=== PATIENT | female | born 1950 | race Caucasian/White ===

== ENCOUNTER 2017-01-07 10:17 | Emergency (ER) | payer MEDICARE, OTHER ==
[~2017-01-07 10:17] MED LIST: AMLODIPINE BESYL5 MG PO; ASPIRIN81 M1 PO; CALCIUM + VITA1 EAC4 PO; EVISTA60 M1 PO; FISH OIL 1,0001 EAC7 PO; METOPROLOL TART50 M2 PO; PERCOCET 5-3251 EACH PO
[2017-01-07] MEDS ORDERED: OMEPRAZOLE20 M3 PO (10:28)
[2017-01-07] MEDS ORDERED: FLECAINIDE ACE100 M1 PO (10:28)
[2017-01-07] MEDS ORDERED: SYNTHROID25 MC1 PO (10:29)
[2017-01-07] MEDS ORDERED: LISINOPRIL5 M1 PO (10:29)
[2017-01-07 11:44] LABS: BASO % 0.3 % (0-2); EOS % 0.6 % (0-7); HCT-HEMATOCRIT 41.2 % (34.0-49.0); HGB-HEMOGLOBIN 14.2 gm/dl (12.0-15.5); IMMATURE GRANULOCYTES ABSOLUTE 0.01 tho/cmm (0-0.03); IMMATURE GRANULOCYTES PERCENT 0.2 % (0-0.3); LYMPH ABSOLUTE COUNT 0.9 tho/cmm (0.8-4.5); MCH (MEAN CORPUSCULAR HGB) 33.1 pg (28.0-32.0); MCHC MEAN CORPUSCULAR HGB CONC 34.5 % (32.0-36.0); MONO % 5.8 % (0-12); MONOCYTE ABSOLUTE COUNT 0.4 tho/cmm (0.0-1.2); NEUTROPHIL ABSOLUTE COUNT 5.2 tho/cmm (1.6-8.0); NEUTROPHIL-AUTOMATED 5.2 tho/cmm (1.6-8.0); NEUTROPHILS % 79.1 % (40-80); PLATELET COUNT 350 tho/cmm (150-450); RED BLOOD COUNT 4.29 mil/cmm (4.00-5.20); RED CELL DISTRIBUTION WIDTH 12.5 % (12.4-16.4); WHITE BLOOD COUNT 6.6 tho/cmm (4.0-10.0)
[2017-01-07 11:45] LABS: URINE APPEARANCE HAZY; URINE BILIRUBIN SMALL (NEG); URINE BLOOD MODERATE (NEG); URINE COLOR YELLOW; URINE GLUCOSE (UA) SMALL (NEG); URINE KETONE SMALL (NEG); URINE LEUKOCYTE ESTERASE POSITIVE (NEG); URINE NITRITE NEGATIVE (NEG); URINE PROTEIN MODERATE (NEG)
[2017-01-07 11:57] LABS: URINE AMORPHOUS 1+; URINE BACTERIA 1+; URINE MUCUS 1+
[2017-01-07 12:01] LABS: ALB/GLOB RATIO 0.9 (0.8-2.0); ALBUMIN 3.6 g/dl (3.5-5.0); ALKALINE PHOSPHATASE 57 U/L (33-138); ALT/SGPT 25 U/L (12-78); BILIRUBIN,TOTAL 0.4 mg/dl (0-1.5); BLOOD UREA NITROGEN 8 mg/dl (6-24); CALCIUM 8.9 mg/dl (8.5-10.5); CARBON DIOXIDE-VENOUS 28 mmol/L (22-32); CHLORIDE 96 mmol/l (96-110); CREATININE 0.67 mg/dl (0.50-1.10); GLUCOSE 107 mg/dL (70-110); SODIUM 131 mmol/L (135-145); eGFR VALUE FOR BLACK >90 mL/Min
[2017-01-07 12:03] LABS: ANION GAP 11 mmol/L (0-20); AST/SGOT 37 U/L (10-40); MAGNESIUM 2.1 mg/dl (1.8-2.6); POTASSIUM 4.4 mmol/L (3.7-5.1)
== END 2017-01-07 14:32 ==
LOC: EDMED 10:17
PROVIDERS: Nurse Practitioner Family
DX: R42 Dizziness and giddiness (principal); I48.91 Unspecified atrial fibrillation; I10 Essential (primary) hypertension; Z79.899 Other long term (current) drug therapy
CPT/HCPCS: J7030